=== PATIENT | female | born 1950 | race Native Hawaiian/Other Pacific Islander ===

== ENCOUNTER 2017-01-18 06:44 | Outpatient (CLI) | payer OTHER, MEDICARE | END 2017-01-18 09:00 | disposition home or self-care (01) | LOC: NM 06:44 | DX: R07.89 Other chest pain (principal); R53.83 Other fatigue; I10 Essential (primary) hypertension | CPT/HCPCS: 93306; A9500; J2785 ==

== ENCOUNTER 2017-07-12 09:03 | Outpatient (CLI) | payer OTHER, MEDICARE | END 2017-07-12 19:11 | disposition home or self-care (01) | LOC: MAMMO 09:03 | DX: Z12.31 Encounter for screening mammogram for malignant neoplasm of breast (principal) ==

== ENCOUNTER 2017-11-21 14:04 | Outpatient (CLI) | payer OTHER ==
[2017-11-21 14:39] LABS: POTASSIUM 3.8 mmol/L (3.6-5.2)
== END 2017-11-21 18:55 | disposition home or self-care (01) ==
LOC: LABW 14:04
PROVIDERS: Internal Medicine Cardiovascular Disease
DX: R06.09 Other forms of dyspnea (principal); Z79.899 Other long term (current) drug therapy; Z51.81 Encounter for therapeutic drug level monitoring
CPT/HCPCS: 36415; 80048; 83880

== ENCOUNTER 2017-12-13 08:29 | Outpatient (CLI) | payer OTHER | END 2017-12-13 19:27 | disposition home or self-care (01) | LOC: US 08:29 | DX: R93.5 Abnormal findings on diagnostic imaging of other abdominal regions, including retroperitoneum (principal); I10 Essential (primary) hypertension; Z79.899 Other long term (current) drug therapy; Z51.81 Encounter for therapeutic drug level monitoring; R06.02 Shortness of breath; R53.83 Other fatigue; R09.89 Other specified symptoms and signs involving the circulatory and respiratory systems ==

== ENCOUNTER 2018-08-08 09:04 | Outpatient (CLI) | payer OTHER | END 2018-08-08 23:35 | disposition home or self-care (01) | LOC: MAMMO 09:04 | DX: Z12.31 Encounter for screening mammogram for malignant neoplasm of breast (principal) ==

== ENCOUNTER 2018-10-16 10:40 | Outpatient (CLI) | payer OTHER | END 2018-10-16 23:59 | disposition home or self-care (01) | LOC: RAD 10:40 | DX: M54.12 Radiculopathy, cervical region (principal) ==

== ENCOUNTER 2019-04-24 08:04 | Outpatient (CLI) | payer OTHER ==
[~2019-04-24] VITALS: Ht 30.5 cm; Wt 0.5 kg
== END 2019-04-24 20:25 | disposition home or self-care (01) ==
LOC: NM 08:04
DX: R07.89 Other chest pain (principal)
CPT/HCPCS: 93225; A9500; J2785

== ENCOUNTER 2019-06-18 12:37 | Outpatient (CLI) | payer OTHER | END 2019-06-18 19:13 | disposition home or self-care (01) | LOC: RESP 12:37 | DX: I48.91 Unspecified atrial fibrillation (principal) | CPT/HCPCS: 93306 ==

== ENCOUNTER 2019-08-19 13:29 | Outpatient (CLI) | payer OTHER | END 2019-08-19 20:13 | disposition home or self-care (01) | LOC: MAMMO 13:29 | DX: Z12.31 Encounter for screening mammogram for malignant neoplasm of breast (principal) ==

== ENCOUNTER 2020-03-24 10:37 | Outpatient (CLI) | payer OTHER | END 2020-03-24 19:03 | disposition home or self-care (01) | LOC: LABW 10:37 | PROVIDERS: Internal Medicine Cardiovascular Disease | DX: Z79.899 Other long term (current) drug therapy (principal); R06.02 Shortness of breath | CPT/HCPCS: 36415; 80048; 83880 ==

== ENCOUNTER 2020-03-30 10:28 | Outpatient (CLI) | payer OTHER | END 2020-03-30 21:23 | disposition home or self-care (01) | LOC: RAD 10:28 | DX: M54.17 Radiculopathy, lumbosacral region (principal) ==

== ENCOUNTER 2020-05-25 10:17 | Outpatient (CLI) | payer OTHER | END 2020-05-25 20:27 | disposition home or self-care (01) | LOC: US 10:17 | DX: E04.1 Nontoxic single thyroid nodule (principal); Z13.820 Encounter for screening for osteoporosis; N95.8 Other specified menopausal and perimenopausal disorders ==

== ENCOUNTER 2020-05-26 09:32 | Outpatient (CLI) | payer OTHER ==
[2020-05-26 09:50] LABS: POTASSIUM 4.4 mmol/L (3.6-5.2)
== END 2020-05-26 23:19 | disposition home or self-care (01) ==
LOC: LABW 09:32
PROVIDERS: Internal Medicine Cardiovascular Disease
DX: Z79.899 Other long term (current) drug therapy (principal)
CPT/HCPCS: 36415; 80048

== ENCOUNTER 2020-06-30 12:32 | Outpatient (CLI) | payer OTHER | END 2020-06-30 23:25 | disposition home or self-care (01) | LOC: LABW 12:32 | PROVIDERS: Internal Medicine Cardiovascular Disease | DX: Z79.899 Other long term (current) drug therapy (principal) | CPT/HCPCS: 36415; 80061 ==

== ENCOUNTER 2020-10-28 12:40 | Outpatient (CLI) | payer OTHER | END 2020-10-28 20:10 | disposition home or self-care (01) | LOC: EMG 12:40 → MAMMO 14:30 → EMG 20:10 | PROVIDERS: ATTEND Nurse Practitioner Family | DX: Z12.31 Encounter for screening mammogram for malignant neoplasm of breast (principal); M79.2 Neuralgia and neuritis, unspecified | CPT/HCPCS: 95860; 95910 ==

== ENCOUNTER 2021-05-06 19:53 | Emergency (ER) | payer OTHER ==
[2021-05-06] VITALS (9 sets, daily range): BP systolic 100–122; BP diastolic 61–82; TEMP 97.9
[~2021-05-06] VITALS: Ht 157.5 cm; Wt 86.2 kg
[2021-05-06 20:49] LABS: PLATELET COUNT 163 K/uL (152-353)
[2021-05-06 21:02] LABS: POTASSIUM 4.2 mmol/L (3.6-5.2)
[2021-05-07] VITALS (25 sets, daily range): BP systolic 100–135; BP diastolic 60–85; TEMP 97.1–97.8
== END 2021-05-07 16:17 | disposition home or self-care (01) ==
LOC: ED 19:53 → EDIP 22:24 → ED 22:24
PROVIDERS: Emergency Medicine Emergency Medical Services
DX: R09.02 Hypoxemia (principal); Z86.16 Personal history of COVID-19; R53.1 Weakness; R53.81 Other malaise; E86.0 Dehydration; R79.89 Other specified abnormal findings of blood chemistry; R06.02 Shortness of breath; Z20.822 Contact with and (suspected) exposure to COVID-19
CPT/HCPCS: 36415; 80053; 83880; 84484; 85027; 87635; 93005; 94760; 96360; 99284; U0003

== ENCOUNTER 2021-05-17 12:31 | Emergency (ER) | payer OTHER ==
[~2021-05-17] VITALS: Ht 157.5 cm; Wt 86.2 kg
[2021-05-17 12:31] VITALS: TEMP 98.1
[2021-05-17 13:23] LABS: PLATELET COUNT 124 K/uL (152-353)
[2021-05-17 13:32] LABS: SODIUM 143 mmol/L (136-145)
[2021-05-17 15:37] VITALS: BP 107/61
== END 2021-05-17 15:37 ==
LOC: ED 12:35
PROVIDERS: Emergency Medicine Emergency Medical Services
DX: U07.1 COVID-19 (principal); R53.1 Weakness; I48.91 Unspecified atrial fibrillation
CPT/HCPCS: 80053; 83735; 84484; 85027; 85610; 87040; 93005; 99283

== ENCOUNTER 2021-06-06 10:34 | Outpatient (CLI) | payer OTHER ==
[2021-06-06 11:07] LABS: POTASSIUM 3.4 mmol/L (3.6-5.2)
== END 2021-06-06 21:08 | disposition home or self-care (01) ==
LOC: US 10:34
PROVIDERS: ATTEND Nurse Practitioner Family
DX: U07.1 COVID-19 (principal); R31.9 Hematuria, unspecified
CPT/HCPCS: 80053; 82550

== ENCOUNTER 2021-06-21 09:44 | Outpatient (CLI) | payer OTHER | END 2021-06-21 21:53 | disposition home or self-care (01) | LOC: US 09:44 | PROVIDERS: ATTEND Nurse Practitioner Primary Care | DX: R60.0 Localized edema (principal) ==

== ENCOUNTER 2021-07-05 08:34 | Outpatient (CLI) | payer OTHER | END 2021-07-05 21:18 | disposition home or self-care (01) | LOC: CT 08:34 | PROVIDERS: ATTEND Specialist | DX: R31.0 Gross hematuria (principal) ==

== ENCOUNTER 2021-07-22 09:13 | Outpatient (CLI) | payer OTHER ==
[2021-07-23] MEDS ORDERED: ZESTRIL40 MG PO (16:09)
[2021-07-23] MEDS ORDERED: AMLODIPINE BESYLATE PO (16:10)
[2021-07-23] MEDS ORDERED: FURO40TA93 PO (16:10)
[2021-07-23] MEDS ORDERED: XARELTO20 MG PO (16:11)
[2021-07-23] MEDS ORDERED: BYSTOLIC10 MG PO (16:12)
== END 2021-07-22 20:14 | disposition home or self-care (01) ==
LOC: RAD 09:13
PROVIDERS: ATTEND Nurse Practitioner Family
DX: J20.9 Acute bronchitis, unspecified (principal)

== ENCOUNTER 2021-07-23 09:20 | Inpatient (IN) | payer OTHER ==
[~2021-07-23] VITALS: Ht 157.5 cm; Wt 81.9 kg
--- NOTE | 2021-07-23 10:40 | NUR ---
PT ARRIVED VIA WC DIRECT ADMIT FROM DR CRESPO OFFICE. ACCOMPANIED BY SON. PT's SON STATED THAT THIS PT HAS BEEN SICK FOR ABOUT A WEEK AND HAS BEEN TO MD 3 TIMES AND IS NOT GETTING BETTER. SHE IS ACTUALLY WORSE THIS MORNING AND COUGHING UP YELLOW GREEN SPUTUM WITH WHEEZING. ADMISSION ASSESSMENT COMPLETED HOME MEDS FAXED TO PHARMACY AND DR STEPHEN NOTIFIED OF LIST OF HOEM MEDS AND ASK WHICH ONES TO CONTINUE.
[2021-07-23 11:30] VITALS: BP 126/74; TEMP 99; Ht 157.5 cm; Wt 81.9 kg
[2021-07-23 11:36] LABS: PLATELET COUNT 195 K/uL (152-353)
[2021-07-23 16:00] VITALS: BP 150/84; TEMP 102.5
[2021-07-23] MEDS ORDERED: ZESTRIL40 MG PO (16:09)
[2021-07-23] MEDS ORDERED: FURO40TA93 PO (16:10)
[2021-07-23] MEDS ORDERED: AMLODIPINE BESYLATE PO (16:10)
[2021-07-23] MEDS ORDERED: XARELTO20 MG PO (16:11)
[2021-07-23] MEDS ORDERED: BYSTOLIC10 MG PO (16:12)
--- NOTE | 2021-07-23 16:38 | NUR ---
REPORTED LABS AND XRAY REPORT TO DR. STEPHEN. RECEIVED NEW ORDERS FOR CT CHEST PE PROTOCOL, NOTED AND CARRIED OUT.
--- NOTE | 2021-07-23 17:40 | NUR ---
PATIENT MOVED TO ROOM 1118.
[2021-07-23 18:50] VITALS: TEMP 99.2
--- NOTE | 2021-07-23 19:02 | NUR ---
REPORTED TO DONOVAN, PATIENT'S SON, SHE WAS MOVED TO ROOM 118 DUE TO RESPIRATORY ISSUES. DONOVAN V/O UNDERSTANDING.
[2021-07-23 20:23] VITALS: BP 131/64; TEMP 99.2
[2021-07-23 23:40] VITALS: BP 157/85; TEMP 99
--- NOTE | 2021-07-24 01:09 | NUR ---
PT BEGAN TO EXPERIENCE INCREASE IN HR AND ATRIAL FIB. NOTED ON TELEMETRY. PT STATED THAT SHE HAD NOT HAD HER AM MEDICATION. JUANY MANRIQUEZ RNCN PHONE DR. STEPHEN AND INSTRUCTED HER ABOUT PT'S EVENT. NEW ORDERS RECEIVED AND CARRIED OUT. MONITORING HR AND RHYTHM PRESENTLY.
--- NOTE | 2021-07-24 01:25 | NUR ---
HR IS 111 TO 131. PT HAVING COUGHING EPISODES. NONPRODUCTIVE COUGHS AND PT CONTINUES TO HAVE WHEEZING BILATERAL.
--- NOTE | 2021-07-24 01:28 | NUR ---
K RIDER HELD UNTIL HEARTRATE AND RHYTHM HAVE IMPROVED.
--- NOTE | 2021-07-24 01:44 | NUR ---
PT IS RESTING AND USING 02 AT 95 PERCENT. HR IS 124 AND IRREGULAR.
--- NOTE | 2021-07-24 02:34 | NUR ---
LATE ENTRY MD CALLED ABOUT NEW TACKYCARIA. PATIENT IN NO DISTRESS OR PAIN. PATIENT IS NOT SOB. MD ORDERED A DOSE OF AMLODIPINE AND PRN LASIX. PATIENTS HEART RATE WENT FROM 140 TO 112. PATIENT IS RESTING QUIETLY
--- NOTE | 2021-07-24 03:50 | NUR ---
PATIENT WAS HELPED TO THE BSC. PATIENT WAS ABLE TO WIPE HERSELF BUT WAS VERY WEAK. PATIENT WAS HELPED BACK IN BED. PATIENT HAD A SPELL OF COUGHING. PATIENT HAD A SMALL LOOSE BM. PATIENT WAS CLEANED AND PLACED BACK IN THE BED.
[2021-07-24 04:06] VITALS: BP 122/77; TEMP 98
--- NOTE | 2021-07-24 04:29 | NUR ---
PT HAS RECEIVED TOTAL OF 6 BAGS OF 10MEQ IN 10O MLS. THIS ONE WAS NOT NEEDED AND NOT GIVEN. POTASSIUM RIDER.
--- NOTE | 2021-07-24 04:36 | NUR ---
HR WAS ASSESSED AT 0400AM AND RATE WAS 120 BPM. RESP PERFORMED SMART VEST . PT WAS THEN ASSISTED UP OUT OF BED TO BS. PT WAS THEN ASSISTED BACK TO BED. AFTER THE ABOVE ACTIVITY PT'S HR INCREASE TO 140'S. PT IS RESTING WITH EYE CLOSED. HAS NO COMPLAINTS OF CHEST PAIN OR DISCOMFORT.
--- NOTE | 2021-07-24 04:41 | NUR ---
HEART RATE IS NOT DECREASING. Zenobia CASTILLO IS CALLING DR. STEPHEN PPRESENTLY TO REPORT THIS HR AND RHYTHM.
--- NOTE | 2021-07-24 04:42 | NUR ---
MD NOTIFIED THE PATIENTS HEART RATE WAS SUSTAINED 130-150 BPM. MD ORDERED STAT EKG AND LOPRESSOR PO 25MG ONCE
--- NOTE | 2021-07-24 04:47 | NUR ---
RESP HERE AT BEDSIDE TO DO EKG.
[2021-07-24 04:52] LABS: PLATELET COUNT 176 K/uL (152-353)
--- NOTE | 2021-07-24 04:54 | NUR ---
EKG WAS COMPLETED AND PLACED ON CHART. EKG SHOW ATRIAL FIB. RATE OF 134 BEATS PER MINUTE.
[2021-07-24 05:03] LABS: POTASSIUM 3.2 mmol/L (3.6-5.2)
--- NOTE | 2021-07-24 05:28 | NUR ---
PT WAS GIVEN LOPRESSOR 25 MG PO AND WAS REASSESSED AFTER GIVING. HR CONTINUES TO RUN 120'S AND 140`S. LOPRESSOR 5 MG IVSP WAS GIVEN PER JUANY CASTILLO.
--- NOTE | 2021-07-24 06:25 | NUR ---
PO POTASSIUM WAS GIVEN ORDERED.
--- NOTE | 2021-07-24 06:27 | NUR ---
WAS GIVEN AM LABS OF PATIENT. MD ORDERED PO POTASSIUM, CAHNGED NEB TREATMENTS. MD ALSO ORDERED CONTINUED ELECTROLYTE PROTOCOL.
[2021-07-24 08:00] VITALS: BP 120/98; TEMP 98.3
--- NOTE | 2021-07-24 09:07 | NUR ---
HOME MEDS HAVE NOT BEEN GIVEN DUE TO NOT HAVING THEM IN THE FACILITY. SON HAS BEEN CONTACTED TO BRING THEM FROM HOME TODAY.
--- NOTE | 2021-07-24 09:20 | NUR ---
CALLED SON DONOVAN TO ASK HIM TO BRING PT JAMIR AND ANCA. DONOVAN STATED HE WOULD BRING IT IN ABOUT AN HOUR.
--- NOTE | 2021-07-24 10:24 | NUR ---
PT'S BRIEF WAS JUST CHANGED BY CROSSBAR SWITCH ADJUSTER, PT HAD A LARGE LOOSE BM. PT ROLLED IN THE BED WITHOUT ANY DIFFICULTY. PT TOLERATED BEING CHANGED WELL BUT NOW HAS A STRONG PRODUCTIVE COUGH. CROSSBAR SWITCH ADJUSTER WILL GET PT SOMETHING TO HELP WITH COUGH.
[2021-07-24 12:00] VITALS: BP 121/85; TEMP 98.8
--- NOTE | 2021-07-24 12:12 | NUR ---
PHYSICAL THERAPY ATTEMPTED TO GET PT UP AND HEART RATE WENT TO 140BPM. PHYSICAL THERAPY DECIDED TO NOT GET PT UP TO WALK. PT IS NOW SITTING ON THE SIDE OF THE BED EATING LUNCH.
--- NOTE | 2021-07-24 14:21 | NUR ---
PT CALLED CONSTRUCTION STONEMASON TO COME TO HER ROOM TO SEE SOMETHING. WHEN CONSTRUCTION STONEMASON ARRIVED TO PT'S ROOM, PT WAS COMPLAINING THAT HER IV IN THE LEFT FOREARM WAS BURNING. THERE WERE HIVES UP THE LEFT FOREARM FROM THE IV. CONSTRUCTION STONEMASON HAD RECENTLY MOVED POTASSIUM INFUSION FROM THE IV SITE IN THE RIGHT AC TO THE IV SITE IN LEFT FOREARM. CONSTRUCTION STONEMASON STOPPED THE INFUSION AND MOVED THE POTASSIUM INFUSION BACK TO THE IV SITE IN THE RIGHT AC WHERE IT HAD PREVIOUSLY BEEN WITH NO REACTION. PT WAS EDUCATED BY CONSTRUCTION STONEMASON TO CALL IF THE RIGHT ARM STARTS TO FEEL THE SAME WAY THE LEFT DID. WILL CONTINUE TO MONITOR.
--- NOTE | 2021-07-24 15:05 | NUR ---
COCOA POWDER MIXER OPERATOR REASSESSED IV SITE IN THE RIGHT AC AREA. NO HIVES OR IRRITATION ARE PRESENT. COCOA POWDER MIXER OPERATOR WILL CONTINUE POTASSIUM INFUSION IN THE RIGHT AC IV SITE.
[2021-07-24 16:00] VITALS: BP 131/78; TEMP 98.1
[2021-07-24 20:00] VITALS: BP 125/77; TEMP 98.6
[2021-07-25] VITALS: BP 125/75; TEMP 98.2
--- NOTE | 2021-07-25 00:10 | NUR ---
DR. STEPHEN CALLED TO THE NURSES STATION. THIS NURSE REPORTED TO DR. STEPHEN THAT PATIENTS HEART RATE WAS 90-95 BPM. BP WAS 125/77. RESP 20 AND TEMP 98.2. PT USING O2 AT 2L. PT IS ON TELEMETRY MONITORING.SENIOR NETWORK SYSTEMS ENGINEER IS MONITORING HR AND RHYTHM.THIS NURSE IS PROVIDING CLOSE OBSERVATION AND MONITORING. PT CONTINUES TO COUGH. WAS GIVEN TESSALON PEARLES EARLIER THIS SHIFT. PT IS ADMITTED WITH PNEUMONIA AND ATRIAL FIB. THIS PT IS POST COVID EVENT /APRIL 2021. DIGOXIN LEVEL WAS ORDERED FOR THE AM AND NEW ORDER WAS GIVEN TO GIVEN DIGOXIN 0.125 PO IN THE AM. BEDSIDE TABLE IN EASY REACH. CALL LIGHT IN EASY REACH. PT HAS BEEN ABLE TO REST AND DOES TURN HERSELF INDEPENDENTLY.
--- NOTE | 2021-07-25 03:55 | NUR ---
DR. BOWENS CALLED TO CHECK ON PATIENT. PO2 IS 55. NO FURTHER ORDERS RECEIVED. BP IS 120/55 HR 109 O2 SAT AT 90 PERCENT. PT ON BIPAP. CM WITH TACHYCARDIA.
[2021-07-25 04:00] VITALS: BP 140/90; TEMP 97.6
--- NOTE | 2021-07-25 06:34 | NUR ---
MD NOTIIED OF INCREASED BLOOD IN THE URINE. ORDERED UA, STOP LOVENOX
[2021-07-25 07:59] LABS: PLATELET COUNT 286 K/uL (152-353)
[2021-07-25 08:13] LABS: POTASSIUM 4.6 mmol/L (3.6-5.2)
--- NOTE | 2021-07-25 09:30 | NUR ---
PT WALKING AROUND IN ROOM. TOOK HER PULSE OX OFF AND O2 AND PREPARING TO TAKE OFF TELEMETRY. PT COMPLETE DRESSED AND READY TO GO HOME. PT APPEARED CONFUSED. EXPLAINED TO PT THE NEED FOR HER TO STAY AND KEEP TELEMETRY,PULSE OX AND O2 ON. AM MEDS ADMINISTERED ORDERED AND PT TOLERATED WELL WITH NO DIFFICULTY SWALLOWING. NO S/S OF PAIN/DISCOMFORT NOTED. IV TO RAC AND LFA INTACT WITH NO SWELLING OR REDNESS NOTED TO SITES. ENCOURAGED PT NOT TO PULL SITES OUT B/C THEY ARE NEEDED TO GIVE MEDS. PTS SPEECH CLEAR BUT ILLOGICAL.
[2021-07-25 12:00] VITALS: BP 141/83; TEMP 98.3
--- NOTE | 2021-07-25 13:58 | NUR ---
PT SITTING UP IN CHAIR. PT CONTINUES TO BE CONFUSED HAS TO BE REORIENTED TO PLACE AND SITUATION. SON, DONOVAN AT PTS BEDSIDE AFTER BREAKFAST. BROUGHT PT ORANGE DRINKS AND CHIPS, ITEMS IN PTS ROOM. PT AND SON DISCUSSED SWING BED OPTION WITH ELMER SILVA AND PT AND SON AGREE TO PT BEING ON SWING BED STATUS. PT AMBULATES TO RESTROOM, ENCOURAGED PT TO UTILIZE CALL LIGHT WHEN SHE NEED TO GET OUT OF CHAIR WHILE IV ABX WERE INFUSING ORDERED.
[2021-07-25 16:00] VITALS: BP 145/68; TEMP 98.2
--- NOTE | 2021-07-25 18:29 | NUR ---
PT CONTINUES TO BE VERY CONFUSED. CONTINUING TO WONDER OUT OF ROOM AND WALK DOWN THE COATES. HAS TO BE RE-ORIENTED AND RE-DIRECTED. PT AGITATED AND COMBATIVE WITH NSG STAFF, HITTING NSG STAFF WHEN TRYING TO ASSIST HER BACK TO HER ROOM. PT REFUSING TO GO BACK TO ASSISNGED ROOM, WONDERS IN OTHER ROOMS. PT SHOUTED "GET OUT OF HERE, THIS IS MY HOUSE AND I DON'T WANT YOU HERE." MOVED BY TO A ROOM CLOSER TO THE NURSES DESK, ROOM #1106. PT AGREED TO MOVE WITH NO PROBLEMS. PCP ASSESSED PT AT BEDSIDE. SPOKE WITH PTS SONDONOVAN TO GIVE AN UPDATE ON PTS STATUS. INFORMED SON THAT PT MAY NEED SOMEONE TO SIT WITH HER WHILE SHE'S HERE, SON STATED THAT HE WAS UNABLE TO COME AND SIT WITH MOTHER ALL OF THE TIME. SON RECOMMENDED THAT MOTHER GOES HOME. ENCOURAGED SON THAT IT WAS NOT SAFE FOR MOTHER TO BE ALONE WHILE SHE IS CONFUSED AND SHE SHOULD REMAIN AT THIS FACILITY FOR THE PRESENT TIME. SON AGREED. WANDER GUARD HAS BEEN PLACED ON PTS LEFT ANKLE FOR SAFETY PRECAUTIONS. PT CONTINUES TO TAKE TELEMETRY AND PULSE OX LEAD OFF. O2 SATS=98% WITHOUT O2 INTACT, PER PCP MAY HOLD O2.
--- NOTE | 2021-07-25 18:45 | NUR ---
PT LAYING HIGH FOWLERS. DENIES ANY PAIN/DISCOMFORT. NO VOICED COMPLAINTS. PT CONTINUES TO BE CONFUSED AT TIMES AND HAS TO BE RE-ORIENTED. PT COOPERATIVE WITH MEDS AND TX. IVF INFUSING AT 100ML/HR OF NS. IV SITE TO LEFT FA INTACT WITH NO SWELLING OR REDNESS NOTED. CONTINUE TO MONITOR..
[2021-07-25 20:00] VITALS: BP 121/63; TEMP 98.5
--- NOTE | 2021-07-25 20:15 | NUR ---
2000: PT AWAKE, PLEASENT AND COOPERATIVE. NO RESPIRATORY DISTRESS NOTED. PT DENIES PAIN OR DISCOMFORT AT THIS TIME.
--- NOTE | 2021-07-25 21:45 | NUR ---
PT SLEEPING. NO DISTRESS NOTED.
[2021-07-26] VITALS: BP 111/64; TEMP 97.5
--- NOTE | 2021-07-26 01:13 | NUR ---
PT AWAKE, CAME OUT IN HALLWAY AND WAS ASSISTED BACK TO ROOM. PT REFUSED TO GET BACK IN BED AND IS IN CHAIR.
[2021-07-26 04:00] VITALS: BP 121/73; TEMP 97.7
[2021-07-26 05:28] LABS: PLATELET COUNT 246 K/uL (152-353)
[2021-07-26 06:01] LABS: POTASSIUM 3.7 mmol/L (3.6-5.2)
[2021-07-26 08:00] VITALS: BP 133/89; TEMP 98.2
--- NOTE | 2021-07-26 09:02 | NUR ---
AT 0730 MADE ROUNDS, PT SITTING UP IN CHAIR COMPLETELY DRESSED IN PERSONAL CLOTHING. PT HAS TAKEN HER TELEMETRY AND PULSE OX OFF AND REFUSED TO PUT IT BACK ON. PT ALERT AND ORIENTED X4. NO CONFUSION NOTED AND PT CALM AND COOPERATIVE WITH [facility] THERAP[facility]. NOT COMBATIVE OR AGITATED WITH STAFF. KNOWS WHERE SHE IS, THE NAME OF THE CITY, HER D.O.B, ADDRESS, ETC. PT AMBULATES WITH A STEADY GAIT. IV SITE TO LFA INTACT WITH NO SWELLING OR REDNESS NOTED. PT REMOVED IV SITE TO RAC, AND NO REDNESS OR SWELLING NOTED. PT AMBULATES WITH A STEADY GAIT. COOPERATIVE WITH PHYSICAL THERAPY. AMBULATES TO THE BATHROOM WITH NOT ASSISTANCE. WANDER GUARD INTACT TO LEFT ANKLE.
--- NOTE | 2021-07-26 11:17 | NUR ---
PT SITTING UP IN CHAIR. SON, DONOVAN AT BEDSIDE. PLACEMENT FOR SWING BED STILL IN PROCESS, AWAITING APPROVAL. CHEST X-RAY FOR TODAY SHOWED NO CHANGE IN STATUS. AM MEDS ADMINISTERED AND PT TOLERATED WITH NO DIFFICULTY. OT WILL ASSIST PT WITH BATH/SHOWER AFTER LUNCH. PT PERSISTENT ABOUT NOT NEEDING THE HELP OF ANY STAFF TO SHOWER/BATHE. SON WILL BRING PTS CLOTHING FROM HOME.
[2021-07-26 12:00] VITALS: BP 130/80; TEMP 98
--- NOTE | 2021-07-26 12:11 | NUR ---
MD wants patient to see business office technology instructor to see patient next week if possible. Dr. Jeronimo Alonzo MD has been contacted and information set and they will let us know. phone:[phone] fax: [phone] Nursing notified and will let MD know.
--- NOTE | 2021-07-26 14:29 | NUR ---
1420 PT SITTING IN RECLINER IN ROOM. HEPLOCK TO LEFT FOREARM THAT HAD BEEN LEAKING IS DISCONTINUED WITH CANNULA INTACT. NEW HEPLOCK OF 22G TO LEFT HAND X 1 ATTEMPT SUCCESSFUL. PATIENT TOLERATED WELL. CALL LIGHT IN REACH WELL BEDSIDE TABLE IN REACH.
[2021-07-26 16:00] VITALS: BP 133/76; TEMP 98.1
--- NOTE | 2021-07-26 16:08 | NUR ---
IV SITE TO LFA LEAKING AND DISCONTINUED. NEW IV SITE TO RIGHT HAND WITH 22GA X5 ATTEMPTS. FLUSHES WELL WITH NO DIFFICULTY. PT TOLERATED WELL WITH NO VOICED COMPLAINTS. SON AT BEDSIDE. PT GIVEN A SNACK. PT HAS BEEN APPROVED FOR SWING BED AND WILL BE CHANGED ON 07/27/21.
--- NOTE | 2021-07-26 17:49 | NUR ---
PT SITTING UP IN CHAIR WORKING ON A CROSSWORD PUZZLE. PT ALERT AND ORIENTED. SON, DONOVAN AT BEDSIDE MOST OF THE DAY. PT AND SON AGREES TO THE CHANGE IN STATUS, TRANSFERRING TO SWING BED STATUS OF 07/27/21. PT CONTINUES TO AMBULATE TO BATHROOM WITH STEADY GAIT. PT COOPERATIVE WITH STAFF AND NO AGITATION NOTED. PT STARTED ON NEW IV ABX, VANCOMYCIN, FIRST DOSE TODAY. PT TOLERATED WELL NO ADVERSE REACTIONS NOTED. CONTINUE TO MONITOR.
--- NOTE | 2021-07-26 18:30 | NUR ---
ASSITED PT WITH CHANGING OUT OF CLOTHES TO HER GOWN AND PREPARING FOR BED. ADMINISTERED MED FOR COUGH ORDERED AT 1830. COUGH NON-PRODUCTIVE AND CONSTANT. PT COOPERATIVE. DENIES ANY PAIN/DISCOMFORT THIS SHIFT. PT IN BED AND STATED "I'M TIRED AND READY TO GO TO SLEEP." SON, LEFT AND WENT HOME, PLANS TO RETURN TOMORROW. IV TO RIGHT HAND INTACT WITH NO REDNESS OR SWELLING NOTED. IV SITE HEP LOCKED.
[2021-07-26 20:00] VITALS: BP 118/64; TEMP 98.5
[2021-07-27] VITALS: BP 128/65; TEMP 98.3
--- NOTE | 2021-07-27 03:32 | NUR ---
Pt has been resting in bed with eyes closed. Pt A/O during assessments. Denies c/o pain/discomfort. Wander gaurd braclet remains intact to left ankle. 22g SL to right hand without redness/swelling and flushes without difficulty. Cont to have occasional nonproductive cough. No s/s of distress. Call light in easy reach.
[2021-07-27 04:00] VITALS: BP 131/75; TEMP 98.1
[2021-07-27 05:34] LABS: PLATELET COUNT 308 K/uL (152-353)
[2021-07-27 06:28] LABS: POTASSIUM 3.7 mmol/L (3.6-5.2)
[2021-07-27 08:00] VITALS: BP 161/98; TEMP 97.5
--- NOTE | 2021-07-27 10:05 | NUR ---
Patient has an appointment with Dr.Obaid Alonzo on 08/30/21 @ 1pm in [place] [facility] [address] [place] [address]. Ervin Caldwell, [place] [id number] . Her son Dhaval and is aware of appointment and son will take her to appointment. Dukey Rider.
--- NOTE | 2021-07-27 10:05 | NUR ---
PT D/C FROM INPT TO SWING BED STATUS. SWING BED ADMISSION ASSESSMENT COMPLETED.
[2021-07-27] MEDS ORDERED: ACYCLOVIR5 % EX (13:20)
[2021-07-27] MEDS ORDERED: IPRASOL5 INH (13:21)
[2021-07-27] MEDS ORDERED: VANCOMYCIN1250 MG/25 IV (13:22)
[2021-07-27] MEDS ORDERED: LEVALBUTER1.25 MG/0. INH (13:22)
[2021-07-27] MEDS ORDERED: FAMOTIDINE20 MG PO (13:23)
[2021-07-27] MEDS ORDERED: AZIT500I IV (13:24)
[2021-07-27] MEDS ORDERED: ACYCLOVIR800 MG PO (13:25)
[2021-07-27] MEDS ORDERED: ASCORBIC ACD500 MG PO (13:25)
[2021-07-27] MEDS ORDERED: D 50005000 UNIT PO (13:26)
[2021-07-27] MEDS ORDERED: METO50TA27 PO (13:28)
[2021-07-27] MEDS ORDERED: ZINC220 M1 PO (13:28)
[2021-07-27] MEDS ORDERED: MAPAP500 MG PO (13:29)
[2021-07-27] MEDS ORDERED: MAGNSUS68 PO (13:30)
[2021-07-27] MEDS ORDERED: BENZONATATE100 MG PO (13:30)
== END 2021-07-27 10:05 | disposition swing bed (61) | DRG 194 ==
LOC: MED/SURG 09:20
PROVIDERS: ADMIT Family Medicine; ATTEND Family Medicine
DX: J18.8 Other pneumonia, unspecified organism (principal); I50.22 Chronic systolic (congestive) heart failure; N39.0 Urinary tract infection, site not specified; U09.9 Post COVID-19 condition, unspecified; G20 Parkinson's disease; I11.0 Hypertensive heart disease with heart failure; E78.49 Other hyperlipidemia; R54 Age-related physical debility; D64.89 Other specified anemias; E66.8 Other obesity; M15.8 Other polyosteoarthritis; R51.9 Headache, unspecified; J06.9 Acute upper respiratory infection, unspecified; F02.80 Dementia in other diseases classified elsewhere, unspecified severity, without behavioral disturbance, psychotic disturbance, mood disturbance, and anxiety; I48.91 Unspecified atrial fibrillation; Z68.32 Body mass index [BMI] 32.0-32.9, adult
CPT/HCPCS: 36415; 80053; 80162; 81000; 82728; 83735; 83880; 84100; 85027; 85379; 86140; 87040; 87635; 93005; 94640; 94664; 94667; 94668; 94760; 96365; 96367; 96372; 96375; J0456; J0696; J1160; J1650; J3370; J3490; U0003

== ENCOUNTER 2021-07-27 10:05 | Inpatient (IN) | payer OTHER ==
[~2021-07-27] VITALS: Ht 157.5 cm; Wt 81.6 kg
[2021-07-27 10:05] VITALS: BP 159/89; TEMP 98; Ht 157.5 cm; Wt 81.6 kg
[~2021-07-27 10:05] MED LIST: AMLODIPINE BESYLATE PO; BYSTOLIC10 MG PO; FURO40TA93 PO; XARELTO20 MG PO; ZESTRIL40 MG PO
[2021-07-27] MEDS ORDERED: ACYCLOVIR5 % EX (13:20)
[2021-07-27] MEDS ORDERED: IPRASOL5 INH (13:21)
[2021-07-27] MEDS ORDERED: VANCOMYCIN1250 MG/25 IV (13:22)
[2021-07-27] MEDS ORDERED: LEVALBUTER1.25 MG/0. INH (13:22)
[2021-07-27] MEDS ORDERED: FAMOTIDINE20 MG PO (13:23)
[2021-07-27] MEDS ORDERED: AZIT500I IV (13:24)
[2021-07-27] MEDS ORDERED: ACYCLOVIR800 MG PO (13:25)
[2021-07-27] MEDS ORDERED: ASCORBIC ACD500 MG PO (13:25)
[2021-07-27] MEDS ORDERED: D 50005000 UNIT PO (13:26)
[2021-07-27] MEDS ORDERED: ZINC220 M1 PO (13:28)
[2021-07-27] MEDS ORDERED: METO50TA27 PO (13:28)
[2021-07-27] MEDS ORDERED: MAPAP500 MG PO (13:29)
[2021-07-27] MEDS ORDERED: BENZONATATE100 MG PO (13:30)
[2021-07-27] MEDS ORDERED: MAGNSUS68 PO (13:30)
[2021-07-27 20:00] VITALS: BP 133/64; TEMP 97.8
[2021-07-28 02:17] VITALS: BP 133/64; TEMP 97.8
[2021-07-28 08:00] VITALS: BP 148/82; TEMP 98.2
[2021-07-28 12:00] VITALS: BP 138/74; TEMP 97.7
[2021-07-28 20:00] VITALS: BP 145/80; TEMP 98.1
[2021-07-29 08:00] VITALS: BP 132/87; TEMP 97.9
[2021-07-29 19:51] VITALS: BP 150/84; TEMP 97.8
[2021-07-30 08:00] VITALS: BP 147/85; TEMP 98.4
[2021-07-30 20:32] VITALS: BP 145/88; TEMP 98.1
[2021-07-31 08:00] VITALS: BP 169/76; TEMP 98.1
[2021-07-31 20:54] VITALS: BP 151/83; TEMP 98.3
[2021-08-01 20:31] VITALS: BP 128/70; TEMP 98.1
[2021-08-02 08:00] VITALS: BP 134/83; TEMP 98.5
[2021-08-02 20:18] VITALS: BP 131/69; TEMP 98.5
[2021-08-03 08:00] VITALS: BP 131/89; TEMP 98.5
[2021-08-03 20:54] VITALS: BP 113/55; TEMP 98.4
[2021-08-04 20:00] VITALS: BP 126/53; TEMP 98.5
[2021-08-05 08:00] VITALS: BP 149/87; TEMP 98.5
== END 2021-08-05 17:05 | disposition home health service (06) | DRG 193 ==
LOC: MED/SURG 10:05
PROVIDERS: ADMIT Family Medicine; ATTEND Family Medicine
DX: J18.8 Other pneumonia, unspecified organism (principal); U07.1 COVID-19; R53.81 Other malaise; G20 Parkinson's disease; M62.81 Muscle weakness (generalized); Z74.1 Need for assistance with personal care; I10 Essential (primary) hypertension; J20.9 Acute bronchitis, unspecified; R05.1 Acute cough; J06.9 Acute upper respiratory infection, unspecified; E86.0 Dehydration; R51.9 Headache, unspecified; R09.81 Nasal congestion; F03.90 Unspecified dementia, unspecified severity, without behavioral disturbance, psychotic disturbance, mood disturbance, and anxiety
CPT/HCPCS: 36415; 80202; 87081; 94640; 94664; 94667; 94760

== ENCOUNTER 2021-08-12 08:42 | Outpatient (CLI) | payer OTHER ==
[~2021-08-12 08:42] MED LIST changes: +ACYCLOVIR5 % EX; +ACYCLOVIR800 MG PO; +ASCORBIC ACD500 MG PO; +AZIT500I IV; +BENZONATATE100 MG PO; +D 50005000 UNIT PO; +FAMOTIDINE20 MG PO; +IPRASOL5 INH; +LEVALBUTER1.25 MG/0. INH; +MAGNSUS68 PO; +MAPAP500 MG PO; +METO50TA27 PO; +VANCOMYCIN1250 MG/25 IV; +ZINC220 M1 PO
== END 2021-08-12 18:56 | disposition home or self-care (01) ==
LOC: CT 08:42
PROVIDERS: ATTEND Nurse Practitioner Primary Care
DX: R51.9 Headache, unspecified (principal)

== ENCOUNTER 2021-09-26 08:44 | Outpatient (CLI) | payer OTHER | END 2021-09-26 20:52 | disposition home or self-care (01) | LOC: RESP 08:44 | PROVIDERS: ATTEND Internal Medicine Sleep Medicine | DX: I51.7 Cardiomegaly (principal) ==

== ENCOUNTER 2021-11-15 12:28 | Outpatient (CLI) | payer OTHER | END 2021-11-15 19:03 | disposition home or self-care (01) | LOC: RAD 12:28 | PROVIDERS: ATTEND Nurse Practitioner Primary Care | DX: M25.551 Pain in right hip (principal) ==

== ENCOUNTER 2022-02-22 08:56 | Outpatient (CLI) | payer OTHER | END 2022-02-22 19:20 | disposition home or self-care (01) | LOC: RAD 08:56 | PROVIDERS: ATTEND Internal Medicine Sleep Medicine | DX: Z11.52 Encounter for screening for COVID-19 (principal); Z86.16 Personal history of COVID-19; Z09 Encounter for follow-up examination after completed treatment for conditions other than malignant neoplasm ==